=== PATIENT | female | born 1985 ===

== ENCOUNTER 2025-04-06 05:22 | Day surgery (SDC) | payer OTHER ==
[2025-03-31 09:32] VITALS: BP 96/69
[2025-03-31 09:35] LABS: BASO % 0.7 % (0.1-1.2); EOS # 0.37 (0.04-0.54); EOS % 6.2 % (0.7-7.0); LYMPH # 2.39 (1.18-3.74); LYMPH % 39.9 % (19.3-53.1); MEAN PLATELET VOLUME 11.60 fl (9.4-12.4); MONO # 0.51 (0.24-0.82); MONO % 8.5 % (4.7-12.5); NEUT # 2.65 (1.56-6.13); NEUT % 44.2 % (34.0-71.1); RED CELL DISTRIBUTION WIDTH 12.9 % (11.6-14.4)
[2025-03-31 09:37] LABS: URINE APPEARANCE Clear; URINE BILIRRUBIN Negative (NEGATIVE); URINE BLOOD Negative; URINE COLOR Yellow; URINE GLUCOSE Negative (NEGATIVE); URINE KETONE Negative (NEGATIVE); URINE LEUKOCYTE Negative; URINE NITRATE Negative; URINE PROTEIN Negative (NEGATIVE); URINE UROBILINOGEN 0.2 E.U./dl
[2025-03-31 09:38] LABS: URINE BACTERIA 286.8 uL (0.0-1933); URINE EPITHELIAL CELLS 3.3 uL (0.0-38.8); URINE RBC 16.8 uL (0.0-20.8); URINE WBC 5.9 uL (0.0-23.2)
[2025-03-31 09:45] LABS: URINE CAST 0.00 uL (0.0-1.40)
[2025-03-31 10:06] LABS: INR 1.01
[2025-03-31 10:31] LABS: ALT/SGPT 16.0 U/L (12-78); AST/SGOT 16.0 U/L (15-37); BILIRUBIN TOTAL 0.83 mg/dL (0.3-1.2); BUN CREA RATIO 22.0 (7.0-25.0); CREATININE SERUM 0.49 mg/dL (0.55-1.02); GFR 141.34; GLOBULINA 3.1 G/DL (2.4-3.5); GLUCOSE FASTING 82.0 mg/dL (65-100); OSMOLALITY SERUM 283.0 MOSM/KG (275-295)
[~2025-04-06] VITALS: Ht 160 cm; Wt 46.3 kg
[2025-04-06] MEDS ORDERED: LIDOCAINE HCL 1%/EPINEPHRINE 20ML VIAL IJ ONE (07:26)
[2025-04-06] MEDS ORDERED: FAMOTIDINE/PF 20 MG/2 ML VIAL ONE (07:42)
[2025-04-06] MEDS ORDERED: OXYMETAZOLINE HCL 15 ML NASAL DROPS NASAL ONE (08:30)
[2025-04-06] MEDS ORDERED: SUGAMMADEX SODIUM 200 MG/2 ML VIAL IV ONE (08:43)
[2025-04-06] MEDS ORDERED: MORPHINE SULFATE 4 MG/ML VIAL IV ONE (09:55)
== END 2025-04-06 11:40 | disposition home or self-care (01) ==
LOC: CIR.AMB 05:22
PROVIDERS: ATTEND Otolaryngology
DX: J35.1 Hypertrophy of tonsils (principal); Z88.2 Allergy status to sulfonamides